=== PATIENT | female | born 1975 | race Caucasian/White ===

== ENCOUNTER 2020-03-27 02:59 | Emergency (ER) | payer BC, SELFPAY ==
[2020-03-27 03:01] VITALS: BP 186/114; PULSE 140; RESP 16; TEMP 36.6; O2SAT 94; BMI 22.1
--- NOTE | 2020-03-27 03:19 | [facility].EDDENT ---
ED Disposition Clinical Impression: Dental abscess, Pain, dental Disposition: Home, Self-Care Condition on Discharge: Good Instructions: DI for Dental Pain Additional Instructions: use meds and see pcp and dentist for follow up Prescriptions: clindamycin HCL [Clindamycin HCl] 300 mg PO TID #21 cap Transmission Status: Pending to [facility]/pharmacy #[id number] Ketorolac Tromethamine [Toradol 10mg tablet] 10 mg PO Q6H 3 Days #12 tab Transmission Status: Pending to [facility]/pharmacy #[id number] Referrals: Chadd Ayers [Primary Care Provider] - - Critical Care Critical Care Time: No Attestation: On 03/27/20, the high probability of a clinically significant, sudden or life threatening deterioration of the following system(s) required my full and direct attention, intervention and personal management. The time I documented below is in addition to time spent performing reported procedures but includes the following listed in this critical care notation. Medical Decision Making - Medical Records Medical records reviewed: Yes: I reviewed the patient's medical records. - Hipolito Inquiry Pt receiving controlled substance: No Vital Signs: 03/27/20 03:01 Temperature 97.9 F Temperature Source Oral Pulse Rate [Right] 140 H Respiratory Rate 16 Blood Pressure [Right Arm] 186/114 H Blood Pressure Mean [Right Arm] 138 02 Sat by Pulse Oximetry 94 L - Lab Data Lab results reviewed: Yes: I reviewed the patient's lab results. Medical Decision Narrative: will treat with abx at this time Dental HPI - General Chief complaint: Dental/Oral Stated complaint: Infection inside of jaw;Fever Time Seen by Provider: 03/27/20 03:10 Mode of Arrival: Ambulatory Source of Information: Patient, Spouse, Medical Record Limitations: No Limitations Description of Symptoms (Recalled from ER Triage Doc. by RN): pt c/o rt jaw pain that started yesterday. swelling noted to rt side of face - History of Present Illness HPI Narrative: swelling to rt mandible over the last 2 days - no diff with voice - no sore throat MD Complaint: tooth pain Onset (ago): day(s) Severity: moderate Context: history of dental caries Associated symptoms: gum swelling Treatment prior to arrival: none - Related Data Previous Rx's Medication Instructions Recorded Ketorolac Tromethamine [Toradol 10 mg PO Q6H 3 Days #12 tab 03/27/20 10mg tablet] clindamycin HCL [Clindamycin HCl] 300 mg PO TID #21 cap 03/27/20 Allergies Allergy/AdvReac Type Severity Reaction Status Date / Time No Known Allergies Allergy Verified 03/27/20 03:13 [facility] History - Hepatitis A Screen Drug use history?: No High risk sexual behaviors?: No History of sexually transmitted infection?: No Currently employed?: No Childcare worker?: No Do you have indoor plumbing?: Yes Do you have electricity?: Yes Attestation statement:: This patient has been screened for Hepatitis A risk factors. I have reviewed the patient's past medical history: Yes - Social History Smoking Status: Current every day smoker # Packs/Day (cigarettes): 1 Alcohol Intake: current Alcohol Intake Frequency:: 3 or more drinks per day Occupational Status: employed ROS Obtained: Yes All systems reviewed & no additional complaints - Constitutional Constitutional: Denies fever(s) - Eyes Eyes: Denies change in vision - ENT Ears, Nose, Mouth, and Throat: Reports as per HPI, Denies change in voice, Reports dental pain, Denies sore throat - Cardiovascular Cardiovascular: Denies chest pain - Respiratory Respiratory: Denies cough - Gastrointestinal Gastrointestingal: Denies: abdominal pain - Genitourinary Female Genitourinary: Denies hematuria - Musculoskeletal Musculoskeletal: Denies joint pain, Denies joint swelling - Integumentary/Breasts Skin/Breast: Denies rash - Neurologic Neurologic: Denies headache(s), Denies seizure-like activity Physical Exam - General General appearanc
[2020-03-27 03:41] VITALS: BP 178/87; PULSE 97; RESP 16; TEMP 36.5; O2SAT 98
== END 2020-03-27 03:44 | disposition home or self-care (01) ==
PROVIDERS: Emergency Provider Emergency Medicine; PCP Pediatrics
DX: K04.7 Periapical abscess without sinus (principal); K02.9 Dental caries, unspecified; F17.210 Nicotine dependence, cigarettes, uncomplicated
CPT/HCPCS: 96372; 99281